=== PATIENT | male | born 1950 | race Two or more races ===

== ENCOUNTER 2022-12-18 17:10 | Inpatient (IN) | payer MEDICARE, OTHER ==
[~2022-12-18] VITALS: Ht 193 cm; Wt 108.9 kg
--- NOTE | 2022-12-18 17:30 | NUR ---
PT CONTRACTED WITH MULTIPLE DECUBITES ON LT KNEE AND LT HIP AND LOWER EXTRAMITY
--- NOTE | 2022-12-18 17:30 | NUR ---
RECEIVED PT 72 YEAS MALE CAME BY [facility] FROM SNF C/O SOB AND LOW O2 SAT
--- NOTE | 2022-12-18 18:00 | NUR ---
INSERTED ANGO CATHETER G 18 ON RT FOR ARM BLOOD DROW AND SENT TO LAB AND BLOOD CULTURE X 2 SENT ANS LACTIC ACID SENT TO LAB
--- NOTE | 2022-12-18 18:47 | NUR ---
TANISHA MORENO SENT TO LAB
[2022-12-18] MEDS ORDERED: SIMV-49 PO (18:59)
[2022-12-18] MEDS ORDERED: HYDR-4303 PO (18:59)
[2022-12-18] MEDS ORDERED: POVI3780 TP (18:59)
[2022-12-18] MEDS ORDERED: TAMS-12 PO (18:59)
[2022-12-18] MEDS ORDERED: ASCO-352 PO (18:59)
[2022-12-18] MEDS ORDERED: MAGN400O6 PO (18:59)
[2022-12-18] MEDS ORDERED: DILT120C87 PO (18:59)
[2022-12-18] MEDS ORDERED: MULT-447 PO (18:59)
[2022-12-18] MEDS ORDERED: ACET-868 PO (18:59)
[2022-12-18] MEDS ORDERED: FERR325T23 PO (18:59)
[2022-12-18] MEDS ORDERED: METO25TA3 PO (18:59)
[2022-12-18] MEDS ORDERED: APIX5TAB PO (18:59)
[2022-12-18] MEDS ORDERED: COLL30OI TP (18:59)
[2022-12-18] MEDS ORDERED: ACID1TAB12 PO (18:59)
[2022-12-18] MEDS ORDERED: TRAM50TA2 PO (18:59)
[2022-12-18] MEDS ORDERED: HYDR-4209 PO (18:59)
[2022-12-18] MEDS ORDERED: GABA-532 PO (18:59)
[2022-12-18] MEDS ORDERED: ARGI1POW13 PO (18:59)
[2022-12-18] MEDS ORDERED: DOCU-141 PO (18:59)
[2022-12-18 19:30] LABS: CARBON DIOXIDE 31 mmol/L (21-32); CHLORIDE 107 mmol/L (98-107); CREATININE 0.7 mg/dL (0.6-1.3); GLUCOSE 105 mg/dL (74-106); SODIUM SERUM 143 mmol/L (136-145); UREA NITROGEN, BLOOD 14 mg/dL (7-18)
--- NOTE | 2022-12-18 19:43 | NUR ---
HAND OFF NIRAJ CLEMONS
[2022-12-18 19:44] LABS: ALANINE AMINOTRANSFERASE 31 U/L (12-78); ALBUMIN 2.2 g/dL (3.4-5.0); ALKALINE PHOSPHATASE 117 U/L (46-116); ASPARTATE AMINOTRANSFERASE 18 U/L (15-37); BILIRUBIN,DIRECT 0.2 mg/dL (0.0-0.2); BILIRUBIN,TOTAL 0.5 mg/dL (0.2-1.0); TOTAL PROTEIN, SERUM 5.7 g/dL (6.4-8.2)
[2022-12-18 20:32] LABS: BASOPHILS % (AUTO) 0.3 % (0.0-2.0); EOSINOPHILS % (AUTO) 1.3 % (0.0-6.0); HEMATOCRIT 35 % (39-51); HEMOGLOBIN 10.9 g/dL (13.5-17.5); LYMPHOCYTES # (AUTO) 1.1 K/uL (0.8-4.8); LYMPHOCYTES % (AUTO) 18.8 % (20.0-44.0); MEAN CORPUSCULAR HGB CONC 31 g/dl (31.0-36.0); MEAN CORPUSCULAR VOLUME 76 fL (80-96); MONOCYTES # (AUTO) 0.5 K/uL (0.1-1.30); MONOCYTES % (AUTO) 8.5 % (2.0-12.0); NEUTROPHILS # (AUTO) 4.3 K/uL (1.8-8.9); NEUTROPHILS % (AUTO) 71.1 % (43.0-81.0); PLATELET COUNT (AUTO) 288 K/uL (150-450); RED BLOOD CELL COUNT(AUTO) 4.63 MIL/uL (4.5-6.0)
--- NOTE | 2022-12-18 20:44 | NUR ---
PT ACCEPTED TO 323-2 PER RN AUTOMATION CONTROL TECHNICIAN
[2022-12-18] MEDS ORDERED: SIMVASTATIN 40 MG TABLET PO SCH (22:00)
[2022-12-18] MEDS ORDERED: ACETAMINOPHEN 325 MG TABLET PO PRN (22:00)
[2022-12-18] MEDS ORDERED: MAGNESIUM HYDROXIDE 30 ML UDC PO PRN (22:00)
[2022-12-18] MEDS ORDERED: ONDANSETRON HCL/PF 4 MG/2 ML VIAL IVP PRN (22:00)
[2022-12-18] MEDS ORDERED: Z GUARD REMEDY 4 OZ OINT TP PRN (22:00)
--- NOTE | 2022-12-18 22:10 | NUR ---
REPORT GIVEN TO DONAL CLEMONS FOR CONTINUATION OF CARE. .
[2022-12-18 22:15] VITALS: BP 110/70
--- NOTE | 2022-12-18 22:19 | NUR ---
PT TRANSFERRED TO VIA [facility].
--- NOTE | 2022-12-18 23:00 | NUR ---
BILLING REPRESENTATIVEHEALTH INSURANCE AGENT NOTES: RECEIVED PATIENT AWAKE IN BED, TRANSFER VIA GURNEY FROM ER, PATIENT WAS PLACED COMFORTABLY IN BED, BED IN LOW POSITION, CALL LIGHTS WITHIN REACH, NO COMPLAIN OF PAIN AND DISCOMFORT AT THIS TIME, ON O2 INHALATION AT 2LPM SATURATING AT 98-99%, PATIENT ON TELE MONITOR- SR-[id number] NO SYMPTOMS WAS OBSERVED, SKIN ASSESSMENT PARTIALLY DONE SOME PICTURES TAKEN PATIENT REFUSED TO BE TURNED AND REMOVAL OF BANDAGE ON LEFT FOOT, INVENTORY DONE AND SIGNED, PATIENT WAS ORIENTED TO ROOM REMIND TO USE THE CALL LIGHTS WHEN NEEDED ASSISTANCE, PATIENT KEPT CLEAN AND DRY ALL NEEDS MET WILL CONTINUE TO MONITOR
[2022-12-18] MEDS ORDERED: FUROSEMIDE 20 MG/2 ML VIAL IV ONE (23:30)
[2022-12-18] MEDS ORDERED: SIMVASTATIN 20 MG TABLET ONE (23:55)
[2022-12-19] VITALS (7 sets, daily range): BP systolic 99–124; BP diastolic 59–89
[2022-12-19] MEDS: HYDROCODONE/APAP 5/325MG TABLET PO PRN ×4 (00:15→16:08)
--- NOTE | 2022-12-19 05:31 | NUR ---
RN NOTES: ATTEMPT TO CHANGE DRESSING AND POSSIBLE ASSESSMENT OF SKIN AT THE BACK PART AND SACRAL WHILE CHANGING THE BD SHEET AND DIAPER, PATIENT WAS SCREAMING AND BECOMING COMBATIVE, SKIN ASSESSMENT WAS NOT DONE AND DOCUMENTED, PATIENT WAS PREMEDICATED WITH PAIN MEDICINE NORCO 5-325 PRIOR TO CHANGING, WILL CONTINUE TO MONITOR
[2022-12-19 06:01] LABS: CALCIUM, SERUM 8.3 mg/dL (8.5-10.1); CREATININE 0.8 mg/dL (0.6-1.3); MAGNESIUM 1.9 mg/dL (1.8-2.4); PHOSPHORUS 3.6 mg/dL (2.5-4.9); POTASSIUM 3.5 mmol/L (3.5-5.1)
[2022-12-19 06:04] LABS: BASOPHILS % (AUTO) 0.3 % (0.0-2.0); EOSINOPHILS % (AUTO) 1.1 % (0.0-6.0); HEMATOCRIT 39 % (39-51); HEMOGLOBIN 11.6 g/dL (13.5-17.5); LYMPHOCYTES % (AUTO) 19.4 % (20.0-44.0); MEAN CORPUSCULAR HGB CONC 30 g/dl (31.0-36.0); MEAN CORPUSCULAR VOLUME 75 fL (80-96); MONOCYTES # (AUTO) 0.4 K/uL (0.1-1.30); MONOCYTES % (AUTO) 7.9 % (2.0-12.0); NEUTROPHILS # (AUTO) 3.6 K/uL (1.8-8.9); NEUTROPHILS % (AUTO) 71.3 % (43.0-81.0); PLATELET COUNT (AUTO) 304 K/uL (150-450); RED BLOOD CELL COUNT(AUTO) 5.12 MIL/uL (4.5-6.0); WHITE BLOOD COUNT (AUTO) 5.1 K/uL (4.3-11.0)
[2022-12-19 06:17] LABS: THYROID STIMULATING HORMONE 2.62 uIU/mL (0.358-3.74)
--- NOTE | 2022-12-19 06:28 | NUR ---
RESIDENTIAL GREEN BUILDING DESIGNER CLOSING NOTES: PATIENT AWAKE IN BED, BED IN LOW POSITION CALL LIGHTS WITHIN REACH, NO COMPLAIN OF PAIN AND DISCOMFORT AT THIS TIME, ON O2 INHALATION AT 2LPM SATURATING WELL, ON TELE MONITOR- AFIB-94, NO SYMPTOMS WAS OBSERVED, PATIENT IS ON BED REST WITH MULTIPLE SKIN ISSUES, REFUSE TO BE CHANGE, AND DOCUMENTED. PATIENT KEPT CLEAN AND DRY ALL NEEDS MET ENDORSE TO INCOMING SHIFT.
--- NOTE | 2022-12-19 07:20 | NUR ---
BALL TRUING MACHINE OPERATOR OPENING NOTES: RECEIVED PATIENT AWAKE IN BED WITH HOB ELEVATED, PT IS AOX3-4, HARD OF HEARING, ABLE TO MAKE NEEDS KNOWN, FOLLOWS SIMPLE COMMANDS, ON ROOM AIR WITH NO DIFFICULTY BREATHING. OV ACCESS ON RFA G#18 SALINE LOCKED, PATENT AND FLUSHING WELL. ON TELEMONITORING WITH CURRENT READING OF AFIB WITH HR OF 110-120S, MD IS AWARE. PATIENT REPORTS PAIN IS CONTROLLED BUT FEELS IT WHEN MOVED, WILL CHECK AGAIN ONCE PAIN MEDICATION. PATIENT VERBALIZED REFUSAL TO CHANGE POSITION DESPITE ENCOURAGEMENT AND EDUCATION. TALKED ABOUT DIAPER CHANGE WELL, AND THE IMPORTANCE OF KEEPING DRY. WILL PLACE CONDOM CATHETER PATIENT IS REFUSING STERLING. SAFETY MEASURES IN PLACE: BED IN LOWEST AND LOCKED POSITION, SIDE RAILS UP X2, BED ALARM ON, TRAY TABLE AND CALL LIGHT WITHIN EASY REACH. WILL CONTINUE TO MONITOR.
[2022-12-19] MEDS: PANTOPRAZOLE 40 MG TABLET.DR PO SCH (07:44)
[2022-12-19] MEDS: ACIDOPHILUS/BULGARICUS 1 EACH TAB.CHEW PO SCH (08:17)
[2022-12-19] MEDS: ASCORBIC ACID 500 MG TABLET PO SCH (08:17)
[2022-12-19] MEDS: DOCUSATE SODIUM 100 MG CAPSULE PO SCH (08:19)
[2022-12-19] MEDS: METOPROLOL SUCCINATE 25 MG TAB.SR.24H PO SCH (08:19)
[2022-12-19] MEDS: DILTIAZEM HCL CD 120 MG PO SCH (08:19)
[2022-12-19] MEDS: MULTIVIT W/MINERALS 1 TAB TABLET PO SCH (08:19)
[2022-12-19] MEDS: TAMSULOSIN 0.4 MG CAP.SR.24H PO SCH (08:20)
[2022-12-19] MEDS: GABAPENTIN 100 MG CAPSULE PO SCH ×4 (08:20→21:57)
[2022-12-19] MEDS: FERROUS SULFATE (325 MG) 325 MG/TAB TABLET PO SCH ×2 (08:21→16:09)
[2022-12-19] MEDS: APIXABAN 5 MG TABLET PO SCH ×2 (08:23→16:08)
[2022-12-19] MEDS: ARGININE/GLUTAMINE/CALCIUM BMB 1 EACH POWD.PACK PO SCH ×2 (08:24→17:00)
[2022-12-19] MEDS ORDERED: FUROSEMIDE 40 MG/4 ML VIAL IV SCH (09:00)
[2022-12-19] MEDS ORDERED: COLLAGENASE 30 GM TUBE TP SCH (09:00)
--- NOTE | 2022-12-19 10:50 | NUR ---
RN NOTES - PATIENT COMPLAINING OF 7/10 LEFT HIP PAIN, GIVEN NORCO 5/325 MG, WILL CONTINUE TO MONITOR.
[2022-12-19] MEDS ORDERED: NA PHOS,M-B/NA PHOS,DI-BA 1 EA ENEMA RC PRN (11:30)
--- NOTE | 2022-12-19 16:15 | NUR ---
RN NOTES - PATIENT COMPLAINING OF 7/10 LEFT HIP PAIN AGAIN, GIVEN NORCO 5/325 MG, WILL CONTINUE TO MONITOR.
[2022-12-19] MEDS ORDERED: KETOROLAC TROMETHAMINE INJ 30 MG/ML VIAL IV PRN (16:30)
--- NOTE | 2022-12-19 18:05 | NUR ---
RN NOTES - CALLED KITCHEN TO REMIND CHERRY AT 1600 BUT NO CHERRY UP UNTIL THIS TIME STOCKED, WILL ENDORSE TO COPIER OPERATOR NURSE.
--- NOTE | 2022-12-19 18:15 | NUR ---
"RN NOTES - PAIN MEDICATION | CONDOM CATH | PM CARE PATIENT IS ANXIOUS ABOUT POSSIBLE PAIN DURING PERICARE AND BED CHANGE, GIVEN KETOROLAC 30 MG VIA IV ORDERED, CHANGED CONDOM CATH AND CHANGED REPLACED BEDSHEETS, PATIENT WAS ABLE TO TOLERATE TURNING AND REPOSITIONING"
--- NOTE | 2022-12-19 19:25 | NUR ---
NURSING ADMINISTRATOR CLOSING NOTES PATIENT AWAKE IN BED WITH HOB ELEVATED, PT IS AOX3-4, HARD OF HEARING, ON 2LPM VIA NC WITHOUT DIFFICULTY. OV ACCESS ON RFA G#18 SALINE LOCKED, PATENT AND FLUSHING WELL. ON TELEMONITORING WITH CURRENT READING OF CONTROLLED AFIB WITH HR OF 80S, PAIN IS CONTROLLED AT THE MOMENT, SAME IV ACCESS, PATENT, FLUSHING WELL. ON CONDOM CATHETER DRAINING PALE YELLOW URINE OF ABOUT 200 CC. ALL DUE MEDS GIVEN, KEPT SAFE AND COMFORTABLE. SAFETY MEASURES MAINTAINED: BED IN LOWEST AND LOCKED POSITION, SIDE RAILS UP X2, BED ALARM ON, TRAY TABLE AND CALL LIGHT WITHIN EASY REACH. ENDORSED TO CORPORATE DIRECTOR OF PHARMACY NURSE.
--- NOTE | 2022-12-19 19:30 | NUR ---
TABLE WORKER PACKAGER OPENING NOTES RECEIVED PT AWAKE IN BED WITH HOB ELEVATED. AOX3-4, [place], ABLE TO MAKE NEEDS KNOWN. ON 2LPM VIA NC WITH NO S/S OF SOB OR DISTRESS. IV ACCESS RFA #18G SL, PATENT AND FLUSHING WELL. ON TELE MONITORING WITH CURRENT READING OF CONTROLLED AFIB WITH HR OF 110. ON CONDOM CATHETER INTACT, PALE YELLOW URINE NOTED IN BAG. SAFETY MEASURES IN PLACE: BED IN LOWEST AND LOCKED POSITION, SIDE RAILS UP X3, BED ALARM ON, TRAY TABLE AND CALL LIGHT WITHIN EASY REACH. WILL CONTINUE TO MONITOR AND ASSIST.
[2022-12-19] MEDS: SIMVASTATIN 20 MG TABLET PO SCH (21:57)
--- NOTE | 2022-12-19 21:58 | NUR ---
RN NOTE PT ENCOURAGED TO TAKE CHERRY PACKET BUT REFUSES. PT STATES "I WANT TO LOOK UP THE INGREDIENTS FIRST". EXPLAINED RISK/BENEFITS, VERBALIZED UNDERSTANDING.
[2022-12-20] VITALS: BP 120/66
--- NOTE | 2022-12-20 03:41 | NUR ---
RN NOTE PT REFUSED BED BATH AND LINEN CHANGE AT THIS TIME.
[2022-12-20 04:00] VITALS: BP 125/72
[2022-12-20 06:29] LABS: BASOPHILS % (AUTO) 0.4 % (0.0-2.0); EOSINOPHILS % (AUTO) 2.1 % (0.0-6.0); HEMATOCRIT 32 % (39-51); LYMPHOCYTES # (AUTO) 0.9 K/uL (0.8-4.8); MEAN CORPUSCULAR HGB CONC 31 g/dl (31.0-36.0); MEAN CORPUSCULAR VOLUME 75 fL (80-96); MONOCYTES # (AUTO) 0.5 K/uL (0.1-1.30); MONOCYTES % (AUTO) 11.7 % (2.0-12.0); NEUTROPHILS # (AUTO) 3.1 K/uL (1.8-8.9); NEUTROPHILS % (AUTO) 66.8 % (43.0-81.0); PLATELET COUNT (AUTO) 267 K/uL (150-450); RED BLOOD CELL COUNT(AUTO) 4.29 MIL/uL (4.5-6.0); WHITE BLOOD COUNT (AUTO) 4.7 K/uL (4.3-11.0)
--- NOTE | 2022-12-20 06:46 | NUR ---
SHRIMP CLEANER CLOSING NOTES PT SLEEPING IN BED, HOB SEMI-FOWLERS. AOX3-4, YOMBA SHOSHONE, ABLE TO MAKE NEEDS KNOWN. STABLE ON 2LPM VIA NC WITH NO S/S OF SOB OR DISTRESS. IV ACCESS RFA #18G SL, PATENT AND FLUSHING WELL. ON TELE MONITORING WITH CURRENT READING OF CONTROLLED AFIB, 82 HR. ON CONDOM CATHETER INTACT, DRAINING CLEAR YELLOW URINE, TOTAL OF 400 ML OUTPUT. ALL CARE PROVIDED AND MEDS TOLERATED WELL. REFUSED TO BE CLEANED, REPOSITIONED, OR CHANGE SHEETS. SAFETY MEASURES MAINTAINED: BED IN LOWEST AND LOCKED POSITION, SIDE RAILS UP X3, BED ALARM ON, TRAY TABLE AND CALL LIGHT WITHIN EASY REACH. WILL ENDORSE MICHELLE TO DAY SHIFT NURSE.
[2022-12-20 06:53] LABS: CREATININE 0.8 mg/dL (0.6-1.3); MAGNESIUM 1.8 mg/dL (1.8-2.4); PHOSPHORUS 3.8 mg/dL (2.5-4.9); POTASSIUM 3.8 mmol/L (3.5-5.1)
[2022-12-20 07:00] VITALS: BP 121/85
--- NOTE | 2022-12-20 07:15 | NUR ---
HEAD OF HISTORY CLOSING NOTES PT SLEEPING IN BED, BUT AROUSABLE AND ABLE TO MAKE NEEDS KNOWN. [place], EITHER YOU SHOUT OR WRITE YOUR CONCERNS ON PAPER. STABLE ON 2LPM VIA NC WITH NO S/S OF SOB OR DISTRESS. IV ACCESS RFA #18G SL, FLUSHING HOWEVER WITH VISIBLE BLOOD INSIDE AND OUT OF THE TRANSPARENT TAPE. INFORMED CLIENT THAT DRESSING IS NEEDED TO BE CHANGED AND ESTABLISH NEW IV LINE IF WARRANTED. ON TELE MONITORING WITH CURRENT READING OF CONTROLLED AFIB, 84 HR. ON CONDOM CATHETER INTACT, DRAINING CLEAR YELLOW URINE. SAFETY MEASURES MAINTAINED: BED IN LOWEST AND LOCKED POSITION, SIDE RAILS UP X3, BED ALARM ON, TRAY TABLE AND CALL LIGHT WITHIN EASY REACH. WILL CONTINUE TO MONITOR THE PATIENT Addendum: 12/20/22 at 1142 by TEREZA MONTIEL JR, RN OPENING NOTES
[2022-12-20] MEDS: MULTIVIT W/MINERALS 1 TAB TABLET PO SCH (08:26)
[2022-12-20] MEDS: PANTOPRAZOLE 40 MG TABLET.DR PO SCH (08:26)
[2022-12-20] MEDS: ACIDOPHILUS/BULGARICUS 1 EACH TAB.CHEW PO SCH (08:26)
[2022-12-20] MEDS: FERROUS SULFATE (325 MG) 325 MG/TAB TABLET PO SCH ×2 (08:27→16:04)
[2022-12-20] MEDS: GABAPENTIN 100 MG CAPSULE PO SCH ×4 (08:27→21:26)
[2022-12-20] MEDS: FUROSEMIDE 40 MG TABLET PO SCH (08:27)
[2022-12-20] MEDS: DOCUSATE SODIUM 100 MG CAPSULE PO SCH (08:27)
[2022-12-20] MEDS: TAMSULOSIN 0.4 MG CAP.SR.24H PO SCH (08:27)
[2022-12-20] MEDS: ASCORBIC ACID 500 MG TABLET PO SCH (08:28)
[2022-12-20] MEDS: CADEXOMER IODINE 40 GM TUBE TP SCH (08:28)
[2022-12-20] MEDS: DILTIAZEM HCL CD 120 MG PO SCH (08:29)
[2022-12-20] MEDS: METOPROLOL SUCCINATE 25 MG TAB.SR.24H PO SCH (08:29)
[2022-12-20] MEDS: APIXABAN 5 MG TABLET PO SCH ×2 (08:30→16:06)
[2022-12-20] MEDS: ARGININE/GLUTAMINE/CALCIUM BMB 1 EACH POWD.PACK PO SCH ×2 (08:52→16:04)
--- NOTE | 2022-12-20 10:19 | NUR ---
WOUND CARE CONSULT: PT REFUSED TO TURN FOR SKIN ASSESSMENT. ADMISSION PHOTOS INDICATE MULTIPLE PRESSURE ULCERS PRESENT ON ADMISSION INCLUDING LEFT HIP, SACRUM, LEFT FLANK, LEFT UPPER BACK AND SHOULDER DEEP TISSUE INJURIES AND FOOT WOUNDS, ALL PRESENT ON ADMISSION. DR RODRIGUEZ AND DR DAS CALLED FOR SURGICAL AND DPM CONSULTS. DISCUSSED SKIN PROTECTION WITH NURSING STAFF. [facility]. IN AGREEMENT WITH PLAN OF CARE.
[2022-12-20] MEDS: MELOXICAM 7.5 MG TABLET PO SCH (14:07)
--- NOTE | 2022-12-20 17:45 | NUR ---
Patient didn't sign yet the wound debridement form, verbalizes "It's still premature to sign", according to the patient
[2022-12-20 18:11] LABS: ABG BASE EXCESS 3.4 mmol/L; ABG OXYGEN SATURATION 97.8 % (92.0-98.5); ABG PH 7.456 (7.350-7.450); ABG PO2 106.5 mmHg (75.0-100.0); AaDO2 45.9 mmHg; COHb 1.1 % (0.5-1.5); MetHb 0.2 % (0.0-1.5); O2Hb 96.5 % (94.0-97.0); SITE, ABG Right Radial; VENT MODE, BG 2 LPM NC
[2022-12-20] MEDS: THERAHONEY GEL 1.5 OZ TUBE TP SCH (19:01)
--- NOTE | 2022-12-20 19:35 | NUR ---
SAP PLANT MAINTENANCE CONSULTANT CLOSING NOTES PATIENT AWAKE IN BED WITH HOB ELEVATED, PT IS AOX3, HARD OF HEARING, ON 2LPM VIA NC WITHOUT DIFFICULTY. OV ACCESS ON RFA G#18 SALINE LOCKED, PATENT AND FLUSHING WELL. ON TELEMONITORING WITH CURRENT READING OF CONTROLLED AFIB WITH HR OF 82, PAIN IS CONTROLLED AT THE MOMENT. ON CONDOM CATHETER DRAINING PALE YELLOW URINE OF 800 CC. ALL DUE MEDS GIVEN, KEPT SAFE AND COMFORTABLE. SAFETY MEASURES MAINTAINED: BED IN LOWEST AND LOCKED POSITION, SIDE RAILS UP X2, BED ALARM ON, TRAY TABLE AND CALL LIGHT WITHIN EASY REACH. WILL BE ENDORSED TO ROUTE SALESMAN AND DRIVER NURSE FOR MICHELLE.
--- NOTE | 2022-12-20 19:43 | NUR ---
ASSISTANT PRODUCT MANAGER OPENING NOTES RECEIVED PATIENT IN BED, ON RIGHT LYING POSITION AND MODERATE HIGH BACK REST POSITION. NO S/S OF PAIN OR ANY DISCOMFORT AT THIS TIME. NOTED MULTIPLE PRESSURE ULCERS PATIENT REFUSED TO DO SKIN ASSESSMENT AT THIS TIME. WITH IV ACCESS AT RFA #18 SL PATENT AND INTACT.PATIENT S INCONTINENT USES DIAPER AND ON CONDOM CATHETER CONNECTED TO URINE BAG NOTED URINE OUTPUT. ON TELE MONITORING DEVICE WITH A-FIB READING. PATIENT IS FOR WOUND DEBRIDEMENT BUT PATIENT DID NOT SIGNED A CONSENT. KEPT BED ON LOWE LOCKED POSITION. KEPT SIDE RAILS UP X 2 ALL THE TIME. KEPT CALL LIGHT LIGHT WITHIN AT REACH. WILL CONTINUE TO MONITOR.
[2022-12-20] MEDS: SIMVASTATIN 20 MG TABLET PO SCH (21:28)
[2022-12-21] VITALS: BP 107/75
[2022-12-21] MEDS: HYDROCODONE/APAP 5/325MG TABLET PO PRN (05:11)
--- NOTE | 2022-12-21 06:24 | NUR ---
HOTEL SERVER CLOSING NOTES PATIENT IS IN BED, ASLEEP. A/O X 2 WITH EPISODES OF CONFUSIONS ON MODERATE HIGH BACK REST POSITION. HOOKED TO NASAL CANNULA AT 2LPM SATURATING WELL. ATTACHED TO TELE MONITORING DEVICE WITH EPISODES OF A-FIB. PATIENT IS INCONTINENT AND USES DIAPER. WITH CONDOM CATHETER IN PLACED CONNECTED TO URINE BAG NOTED URINE OUTPUT. WITH IV ACCESS AT RFA #18G SL PATENT AND INTACT.PM CARE RENDERED WOUND CARE DONE. PATIENT ABLE TO MOVE SLOWLY WHEN TURNING. ALL DUE MEDICATIONS GIVEN ALL NEEDS ATTENDED. TURNED PATIENT EVERY 2 HOURS. KEPT BAD ON LOWER LOCKED POSITION KEPT SIDE RAILS UP X 3 ALL THE TIME. KEPT CALL LIGHT WITHIN AT REACH. WILL ENDORSED TO AM SHIFT FOR MICHELLE.
[2022-12-21 06:37] LABS: BASOPHILS % (AUTO) 0.3 % (0.0-2.0); EOSINOPHILS % (AUTO) 1.4 % (0.0-6.0); HEMATOCRIT 33 % (39-51); HEMOGLOBIN 10.3 g/dL (13.5-17.5); LYMPHOCYTES # (AUTO) 0.9 K/uL (0.8-4.8); LYMPHOCYTES % (AUTO) 14.8 % (20.0-44.0); MEAN CORPUSCULAR HGB CONC 31 g/dl (31.0-36.0); MEAN CORPUSCULAR VOLUME 76 fL (80-96); MONOCYTES # (AUTO) 0.5 K/uL (0.1-1.30); MONOCYTES % (AUTO) 7.6 % (2.0-12.0); NEUTROPHILS # (AUTO) 4.6 K/uL (1.8-8.9); NEUTROPHILS % (AUTO) 75.9 % (43.0-81.0); PLATELET COUNT (AUTO) 294 K/uL (150-450); RED BLOOD CELL COUNT(AUTO) 4.37 MIL/uL (4.5-6.0); WHITE BLOOD COUNT (AUTO) 6.1 K/uL (4.3-11.0)
--- NOTE | 2022-12-21 07:30 | NUR ---
STRIPPER PRELIMINARY NOTES PT IN BED, AWAKE, ALERT AND ORIENTED, NO COMPLAINT OF PAIN AT THIS TIME, RESPIRATIONS NORMAL, CALL LIGHT WITHIN REACH, NO SHORTNESS OF BREATH, KEPT COMFORTABLE IN BED.
[2022-12-21 08:00] VITALS: BP 100/69
[2022-12-21] MEDS: PANTOPRAZOLE 40 MG TABLET.DR PO SCH (08:41)
[2022-12-21] MEDS: FERROUS SULFATE (325 MG) 325 MG/TAB TABLET PO SCH ×2 (08:41→16:47)
[2022-12-21] MEDS: DOCUSATE SODIUM 100 MG CAPSULE PO SCH (08:41)
[2022-12-21] MEDS: ASCORBIC ACID 500 MG TABLET PO SCH (08:41)
[2022-12-21] MEDS: MULTIVIT W/MINERALS 1 TAB TABLET PO SCH (08:42)
[2022-12-21] MEDS: DILTIAZEM HCL CD 120 MG PO SCH (08:42)
[2022-12-21] MEDS: TAMSULOSIN 0.4 MG CAP.SR.24H PO SCH (08:42)
[2022-12-21] MEDS: MELOXICAM 7.5 MG TABLET PO SCH (08:42)
[2022-12-21] MEDS: GABAPENTIN 100 MG CAPSULE PO SCH ×4 (08:42→21:07)
[2022-12-21] MEDS: METOPROLOL SUCCINATE 25 MG TAB.SR.24H PO SCH (08:42)
[2022-12-21] MEDS: ACIDOPHILUS/BULGARICUS 1 EACH TAB.CHEW PO SCH (08:42)
[2022-12-21] MEDS: APIXABAN 5 MG TABLET PO SCH ×2 (08:43→16:48)
[2022-12-21] MEDS: FUROSEMIDE 40 MG TABLET PO SCH (08:43)
[2022-12-21] MEDS: ARGININE/GLUTAMINE/CALCIUM BMB 1 EACH POWD.PACK PO SCH ×2 (08:44→16:47)
[2022-12-21 08:46] LABS: CALCIUM, SERUM 7.8 mg/dL (8.5-10.1); CREATININE 0.8 mg/dL (0.6-1.3); PHOSPHORUS 2.9 mg/dL (2.5-4.9); POTASSIUM 3.6 mmol/L (3.5-5.1)
[2022-12-21 09:06] LABS: MAGNESIUM 1.8 mg/dL (1.8-2.4)
[2022-12-21] MEDS: CADEXOMER IODINE 40 GM TUBE TP SCH (09:30)
[2022-12-21] MEDS: THERAHONEY GEL 1.5 OZ TUBE TP SCH (09:30)
--- NOTE | 2022-12-21 11:20 | NUR ---
SCALLOP CUTTER MACHINE NOTES PT SEEN AND EXAMINED BY DR. LUTHER, PLAN OF CARE DISCUSSED WITH PT.
[2022-12-21 12:00] VITALS: BP 103/76
[2022-12-21 16:00] VITALS: BP 94/67
--- NOTE | 2022-12-21 18:25 | NUR ---
ARMY OFFICER NOTES PT REPOSITIONED BUT DOES NOT LIKE IT, PREFERS TO BE ON HIS RIGHT SIDE, EXPLAINED RISKS AND BENEFITS OF REPOSITIONING, STILL REFUSED.
--- NOTE | 2022-12-21 18:25 | NUR ---
DIALYSIS BIOMED TECHNICIAN NOTES PT IN BED, AWAKE, ALERT AND ORIENTED, DENIES PAIN, NOT IN DISTRESS, PM MEDS GIVEN ORDERED, PM CARE PROVIDED, WOUND DRESSING DRY AND INTACT, PT REFUSED WOUND TREATMENT AND DRESSING CHANGE, PT SEEN BY DR. AYALA, REFUSED WOUND EXAM AND DEBRIDEMENT, CONDOM CATH IN PLACE, DRAINING WELL WITH CLEAR, YELLOW URINE, REPOSITIONED FOR COMFORT.
--- NOTE | 2022-12-21 19:50 | NUR ---
TUNGSTEN TENDER OPENING NOTES RECEIVED PATIENT IN BED, ON RIGHT LYING POSITION AND MODERATE HIGH BACK REST POSITION. NO S/S OF PAIN OR ANY DISCOMFORT AT THIS TIME. NOTED MULTIPLE PRESSURE ULCERS. IV ACCESS AT RFA #18 SL PATENT AND INTACT.PATIENT IS INCONTINENT USES DIAPER AND ON CONDOM CATHETER CONNECTED TO URINE BAG NOTED URINE OUTPUT. ON TELE MONITORING DEVICE WITH A-FIB READING. WILL MAINTAIN SAFETY MEASURES WITH BED ON LOW LOCKED POSITION. SIDE RAILS UP X 2. CALL LIGHT AND TABLE WITHIN AT REACH. WILL CONTINUE TO MONITOR AND REASSESS FOR ANY CHANGES. WILL CARRY OUT ANY ONGOING AND ACTIVE MD ORDERS.
[2022-12-21 20:00] VITALS: BP 83/55
[2022-12-21] MEDS: SIMVASTATIN 20 MG TABLET PO SCH (21:07)
--- NOTE | 2022-12-21 21:10 | NUR ---
RN NOTES- REFUSED REPOSITION DUE MEDS GIVEN TO THE PATIENT. REFUSED REPOSITION. WILL MONITOR THE PATIENT AND TRY TO REPOSTION THE PATIENT AFTER 30 MINS.
[2022-12-22] VITALS: BP 110/82
[2022-12-22 04:00] VITALS: BP 105/76
--- NOTE | 2022-12-22 05:10 | NUR ---
RN NOTES- WOUND CARE AND DRESSING CHANGE DONE PATIENT WAS ABLE TO TOLERATE WOUND CARE AND DRESSING CHANGE THIS TIME. LINEN CHANGED AND CONDOM CATHETER CHANGED WITH THE HELP OF MAYCOL. WILL CONTINUE TO MONITOR THE PATIENT.
[2022-12-22 06:08] LABS: BASOPHILS % (AUTO) 0.9 % (0.0-2.0); EOSINOPHILS % (AUTO) 2.3 % (0.0-6.0); HEMATOCRIT 31 % (39-51); HEMOGLOBIN 9.8 g/dL (13.5-17.5); LYMPHOCYTES # (AUTO) 0.9 K/uL (0.8-4.8); LYMPHOCYTES % (AUTO) 16.8 % (20.0-44.0); MEAN CORPUSCULAR HGB CONC 31 g/dl (31.0-36.0); MEAN CORPUSCULAR VOLUME 75 fL (80-96); MONOCYTES # (AUTO) 0.5 K/uL (0.1-1.30); NEUTROPHILS # (AUTO) 3.7 K/uL (1.8-8.9); PLATELET COUNT (AUTO) 265 K/uL (150-450); RED BLOOD CELL COUNT(AUTO) 4.18 MIL/uL (4.5-6.0); WHITE BLOOD COUNT (AUTO) 5.3 K/uL (4.3-11.0)
[2022-12-22 06:37] LABS: CALCIUM, SERUM 7.8 mg/dL (8.5-10.1); CREATININE 0.8 mg/dL (0.6-1.3); MAGNESIUM 1.9 mg/dL (1.8-2.4); POTASSIUM 3.9 mmol/L (3.5-5.1)
--- NOTE | 2022-12-22 06:54 | NUR ---
TOP CAGER OPENING NOTES PATIENT IN BED, ON RIGHT LYING POSITION AND MODERATE HIGH BACK REST POSITION. PATIENT REFUSED TO BE REPOSITIONED. NO S/S OF PAIN OR ANY DISCOMFORT AT THIS TIME. NOTED MULTIPLE PRESSURE ULCERS. WOUND CARE AND DRESSING CHANGE DONE. IV ACCESS AT RFA #18 SL PATENT AND INTACT. PATIENT IS INCONTINENT USES CONDOM CATHETER CONNECTED TO URINE BAG WITH A URINE OUTPUT OF 700cc. ON TELE MONITORING DEVICE WITH A-FIB @ 118. SAFETY MEASURES MAINTAINED WITH BED ON LOW LOCKED POSITION. SIDE RAILS UP X 2. CALL LIGHT AND TABLE WITHIN AT REACH. WILL ENDORSE TO THE NEXT SHIFT FOR CONTINUITY OF CARE. Addendum: 12/22/22 at 0655 by LUCIO HOGUE RN TOP CAGER CLOSING NOTES
[2022-12-22 07:00] VITALS: BP 135/77
--- NOTE | 2022-12-22 07:29 | NUR ---
ROCKET ENGINE COMPONENT MECHANIC OPENING NOTE RECEIVED PT AWAKE AND RESTING IN BED. PT IS A/O X2-3, ABLE TO MAKE NEEDS KNOWN. PT ON O2 AT 2L/MIN VIA NASAL CANNULA, TOLERATING WELL. NO SOB NOTED. NOT IN ANY SIGN OF RESPIRATORY DISTRESS. PT ON TELE SIZE WORKER WITH CURRENT READING SINUS TACH, HR 125. NO C/O CARDIAC DISTRESS VOICED OUT AT THIS TIME. DR. BAEZ AWARE OF PT'S CURRENT READING. SAFETY MEASURES IN PLACE: BED IN LOWEST AND LOCKED POSITION, KEPT HOB ELEVATED, SIDE RAILS UPX2, AND CALL LIGHT WITHIN REACH. WILL CONTINUE PT WITH PLAN OF CARE.
[2022-12-22] MEDS: PANTOPRAZOLE 40 MG TABLET.DR PO SCH (08:20)
[2022-12-22] MEDS: TAMSULOSIN 0.4 MG CAP.SR.24H PO SCH (08:49)
[2022-12-22] MEDS: FUROSEMIDE 40 MG TABLET PO SCH (08:49)
[2022-12-22] MEDS: DOCUSATE SODIUM 100 MG CAPSULE PO SCH (08:49)
[2022-12-22] MEDS: GABAPENTIN 100 MG CAPSULE PO SCH ×2 (08:49→12:33)
[2022-12-22] MEDS: FERROUS SULFATE (325 MG) 325 MG/TAB TABLET PO SCH (08:49)
[2022-12-22] MEDS: MULTIVIT W/MINERALS 1 TAB TABLET PO SCH (08:50)
[2022-12-22] MEDS: ACIDOPHILUS/BULGARICUS 1 EACH TAB.CHEW PO SCH (08:50)
[2022-12-22] MEDS: MELOXICAM 7.5 MG TABLET PO SCH (08:50)
[2022-12-22] MEDS: METOPROLOL SUCCINATE 25 MG TAB.SR.24H PO SCH (08:51)
[2022-12-22] MEDS: ASCORBIC ACID 500 MG TABLET PO SCH (08:51)
[2022-12-22 08:52] VITALS: BP 122/68
[2022-12-22] MEDS: DILTIAZEM HCL CD 120 MG PO SCH (08:52)
[2022-12-22] MEDS: ARGININE/GLUTAMINE/CALCIUM BMB 1 EACH POWD.PACK PO SCH (08:52)
[2022-12-22] MEDS: APIXABAN 5 MG TABLET PO SCH (08:54)
[2022-12-22] MEDS: CADEXOMER IODINE 40 GM TUBE TP SCH (08:54)
[2022-12-22] MEDS: THERAHONEY GEL 1.5 OZ TUBE TP SCH (08:55)
[2022-12-22] MEDS ORDERED: COLL30OI TP (09:58)
[2022-12-22] MEDS ORDERED: FURO40TA5 PO (09:58)
[2022-12-22] MEDS ORDERED: CADE40GE2 TP (09:58)
[2022-12-22] MEDS ORDERED: SIMV-46 PO (09:58)
[2022-12-22] MEDS ORDERED: PANT40TA49 PO (09:58)
[2022-12-22] MEDS ORDERED: MELO7.5T12 PO (09:58)
--- NOTE | 2022-12-22 15:03 | NUR ---
CODING QUALITY COORDINATOR NOTE PT DISCHARGED BACK TO [facility] FOR CONTINUITY OF CARE. PT IS A/O X2-3, ABLE TO MAKE NEEDS KNOWN. PT IS ON O2 AT 2L/MIN VIA NASAL CANNULA, TOLERATING WELL WITH SPO2 AT 96%. NO SOB NOTED. NOT IN ANY SIGN OF RESPIRATORY DISTRESS. VITAL SIGNS TAKEN, STABLE, AND RECORDED. PT REFUSED BODY ASSESSMENTS AND PHOTOGRAPHS OF SKIN ISSUES. PT'S TELE CASE MAKER REMOVED AND TELE BOX WAS GIVEN TO THE EFFICIENCY EXPERT, NERI. TELE CARDIAC READING PRIOR TO REMOVING THE MONITOR WAS SINUS TACH, HR 110. NO C/O CARDIAC DISTRESS VOICED OUT AT THIS TIME. DR. BAEZ AND DR. CECILLE LUTHER AWARE OF PT'S CURRENT CARDIAC READING. ALL BELONGINGS ACCOUNTED FOR. DISCHARGED INSTRUCTIONS AND HEALTH TEACHINGS EXPLAINED TO THE PT AND PT VERBALIZED UNDERSTANDING. IV ACCESS ON RFA G#18 REMOVED AND NO ACTIVE BLEEDING NOTED. DRY PRESSURE DRESSING APPLIED AT THE SITE. WRISTBAND REMOVED. REPORT GIVEN EARLIER TO DEONTE SHI OF [facility]. PT LEFT THE UNIT AT 1458 ACCOMPANIED BY 2 DENTAL LABORATORY TECHNICIAN VIA GURNEY. AYALA AND CHARGED NURSE AWARE OF DISCHARGED.
== END 2022-12-22 14:58 | DRG 291 ==
LOC: ER 18:10 → TELE 21:04
PROVIDERS: ADMIT Nurse Practitioner Family; ATTEND Registered Nurse
DX: I11.0 Hypertensive heart disease with heart failure (principal); I50.23 Acute on chronic systolic (congestive) heart failure; L89.224 Pressure ulcer of left hip, stage 4; L89.144 Pressure ulcer of left lower back, stage 4; L89.154 Pressure ulcer of sacral region, stage 4; L89.623 Pressure ulcer of left heel, stage 3; L89.893 Pressure ulcer of other site, stage 3; R53.2 Functional quadriplegia; J96.01 Acute respiratory failure with hypoxia; I48.20 Chronic atrial fibrillation, unspecified; E44.0 Moderate protein-calorie malnutrition; J90 Pleural effusion, not elsewhere classified; I48.92 Unspecified atrial flutter; Z20.822 Contact with and (suspected) exposure to COVID-19; Z88.8 Allergy status to other drugs, medicaments and biological substances; E78.5 Hyperlipidemia, unspecified; Z79.01 Long term (current) use of anticoagulants; Z79.899 Other long term (current) drug therapy; Z86.59 Personal history of other mental and behavioral disorders; D50.9 Iron deficiency anemia, unspecified; R60.9 Edema, unspecified; M16.12 Unilateral primary osteoarthritis, left hip; M17.12 Unilateral primary osteoarthritis, left knee; M24.562 Contracture, left knee; M24.561 Contracture, right knee; N40.0 Benign prostatic hyperplasia without lower urinary tract symptoms; E88.09 Other disorders of plasma-protein metabolism, not elsewhere classified; G89.29 Other chronic pain; I07.1 Rheumatic tricuspid insufficiency; L89.610 Pressure ulcer of right heel, unstageable; Z91.199 Patient's noncompliance with other medical treatment and regimen due to unspecified reason; E11.40 Type 2 diabetes mellitus with diabetic neuropathy, unspecified; D64.9 Anemia, unspecified; L89.126 Pressure-induced deep tissue damage of left upper back
CPT/HCPCS: 36415; 36600; 71045-TC; 73560-TC; 80048-TC; 80061-TC; 80076-TC; 82728-TC; 83540-TC; 83605-TC; 83735-TC; 83880; 84100-TC; 84443-TC; 84484-TC; 85025-TC; 85378-TC; 85730-TC; 87081-TC; 93307-TC; A4223; A4349; A6253; C9803; G0378; J1885; J1940; J7030

== ENCOUNTER 2023-06-18 22:38 | Inpatient (IN) | payer MEDICARE, OTHER ==
[~2023-06-18] VITALS: Ht 193 cm; Wt 92.1 kg
[~2023-06-18 22:38] MED LIST: ACET-868 PO; ACID1TAB12 PO; APIX5TAB PO; ARGI1POW13 PO; ASCO-352 PO; CADE40GE2 TP; COLL30OI TP; DILT120C87 PO; DOCU-141 PO; FERR325T23 PO; FURO40TA5 PO; GABA-532 PO; HYDR-4209 PO; MAGN400O6 PO; MELO7.5T12 PO; METO25TA3 PO; MULT-447 PO; PANT40TA49 PO; POVI3780 TP; SIMV-46 PO; SIMV-49 PO; TAMS-12 PO
[2023-06-18 23:30] LABS: BASOPHILS # (AUTO) 0.1 K/uL (0.0-0.2); BASOPHILS % (AUTO) 0.5 % (0.0-2.0); EOSINOPHILS # (AUTO) 0.1 K/uL (0.0-0.7); EOSINOPHILS % (AUTO) 0.5 % (0.0-6.0); HEMATOCRIT 41 % (39-51); HEMOGLOBIN 13.1 g/dL (13.5-17.5); LYMPHOCYTES # (AUTO) 0.4 K/uL (0.8-4.8); LYMPHOCYTES % (AUTO) 3.7 % (20.0-44.0); MEAN CORPUSCULAR HEMOGLOBIN 26 PG (26.0-33.0); MEAN CORPUSCULAR HGB CONC 32 g/dl (31.0-36.0); MEAN CORPUSCULAR VOLUME 81 fL (80-96); MONOCYTES # (AUTO) 0.3 K/uL (0.1-1.30); MONOCYTES % (AUTO) 3.3 % (2.0-12.0); NEUTROPHILS # (AUTO) 9.5 K/uL (1.8-8.9); PLATELET COUNT (AUTO) 189 K/uL (150-450); RED BLOOD CELL COUNT(AUTO) 5.05 MIL/uL (4.5-6.0); WHITE BLOOD COUNT (AUTO) 10.3 K/uL (4.3-11.0)
[2023-06-18 23:32] LABS: CALCIUM, SERUM 8.5 mg/dL (8.5-10.1); CARBON DIOXIDE 30 mmol/L (21-32); CHLORIDE 106 mmol/L (98-107); CREATININE 0.8 mg/dL (0.6-1.3); GLUCOSE 116 mg/dL (74-106); POTASSIUM 3.9 mmol/L (3.5-5.1); SODIUM SERUM 143 mmol/L (136-145); UREA NITROGEN, BLOOD 15 mg/dL (7-18)
[2023-06-18 23:36] LABS: INR 1.19 (0.91-1.10); PARTIAL THROMBOPLASTIN TIME 31.3 SEC (24.3-34.3); PROTHROMBIN TIME 12.4 SECS (9.2-11.1)
[2023-06-18 23:38] LABS: ALANINE AMINOTRANSFERASE 68 U/L (12-78); ALBUMIN 3.3 g/dL (3.4-5.0); ALKALINE PHOSPHATASE 126 U/L (46-116); ASPARTATE AMINOTRANSFERASE 38 U/L (15-37); BILIRUBIN,DIRECT 0.2 mg/dL (0.0-0.2); BILIRUBIN,TOTAL 0.9 mg/dL (0.2-1.0); LIPASE 39 U/L (73-393)
[2023-06-18 23:59] LABS: APPEARANCE,URINE CLOUDY (CLEAR); BILIRUBIN,URINE NEGATIVE (NEGATIVE); BLOOD, URINE 3+ Ery/uL (NEGATIVE); COLOR,URINE RED (YELLOW); KETONES,URINE NEGATIVE (NEGATIVE); LEUKOCYTE ESTERASE ,URINE TRACE (NEGATIVE); NITRITE, URINE POSITIVE (NEGATIVE); PH,URINE 7.5 (5.0-8.0); PROTEIN,URINE 1+ mg/dl (NEGATIVE); UGLUCOSE NEGATIVE (NEGATIVE)
[2023-06-19] VITALS (8 sets, daily range): BP systolic 109–144; BP diastolic 69–79; TEMP 97.7–99.1; O2SAT 93–98
[2023-06-19 00:35] LABS: RBC,URINE TOO NUMEROUS TO COUN /HPF (0-2)
[2023-06-19 00:36] LABS: ADD URINE CULTURE YES; BACTERIA,URINE Few /HPF (None Seen); SQUAMOUS EPITHELIAL CELL,UR None Seen /HPF (None Seen)
[2023-06-19] MEDS ORDERED: CEFTRIAXONE 1GM BAG (ER ONLY) 50 ML IV ONE (00:59)
[2023-06-19] MEDS ORDERED: CEFTRIAXONE 1GM BAG (ER ONLY) 1 GM/50 ML PIGGYBACK IV ONE (01:00)
[2023-06-19] MEDS ORDERED: HYDROCODONE/APAP 5/325MG TABLET PO PRN (06:00)
[2023-06-19] MEDS: TAMSULOSIN 0.4 MG CAP.SR.24H PO SCH ×3 (06:00→17:26)
[2023-06-19] MEDS ORDERED: MAGNESIUM HYDROXIDE 30 ML UDC PO PRN (06:00)
[2023-06-19] MEDS ORDERED: MORPHINE SULFATE INJ 2 MG/ML DISP.SYRIN IV PRN (06:30)
[2023-06-19] MEDS ORDERED: ONDANSETRON HCL/PF 4 MG/2 ML VIAL IVP PRN (06:30)
[2023-06-19] MEDS ORDERED: ACETAMINOPHEN 325 MG TABLET PO PRN (06:30)
[2023-06-19] MEDS ORDERED: PANTOPRAZOLE 40 MG TABLET.DR PO SCH (07:30)
[2023-06-19] MEDS: PANTOPRAZOLE 40 MG TABLET.DR PO SCH (08:24)
[2023-06-19] MEDS: DOCUSATE SODIUM 100 MG CAPSULE PO SCH (08:25)
[2023-06-19] MEDS: ACIDOPHILUS/BULGARICUS 1 EACH TAB.CHEW PO SCH (08:25)
[2023-06-19] MEDS: MULTIVIT W/MINERALS 1 TAB TABLET PO SCH (08:25)
[2023-06-19] MEDS: GABAPENTIN 300 MG CAPSULE PO SCH ×4 (08:25→21:02)
[2023-06-19] MEDS: ASCORBIC ACID 500 MG TABLET PO SCH (08:25)
[2023-06-19] MEDS: FUROSEMIDE 40 MG TABLET PO SCH (08:26)
[2023-06-19] MEDS: MELOXICAM 7.5 MG TABLET PO SCH (08:26)
[2023-06-19] MEDS: DILTIAZEM HCL CD 120 MG PO SCH (08:26)
[2023-06-19] MEDS ORDERED: ZINC220C6 PO (08:38)
[2023-06-19] MEDS ORDERED: PETR113O TP (08:38)
[2023-06-19] MEDS ORDERED: CLON0.252 PO (08:38)
[2023-06-19] MEDS ORDERED: MELO-105 PO (08:38)
[2023-06-19] MEDS ORDERED: BENZ-13 PO (08:38)
[2023-06-19] MEDS ORDERED: CALC1TAB30 PO (08:38)
[2023-06-19] MEDS ORDERED: POLY17PO4 PO (08:38)
[2023-06-19] MEDS ORDERED: ATOR40TA PO (08:38)
[2023-06-19] MEDS ORDERED: ACET-2605 PO (08:38)
[2023-06-19] MEDS ORDERED: HYDR-3980 PO (08:38)
[2023-06-19] MEDS ORDERED: AMIN30LI2 PO (08:38)
[2023-06-19] MEDS ORDERED: BUDE0.5A4 IH (08:38)
[2023-06-19] MEDS ORDERED: ACET-868 PO (08:38)
[2023-06-19] MEDS ORDERED: ZINC57OI4 TP (08:38)
[2023-06-19] MEDS ORDERED: CRAN425C6 PO (08:38)
[2023-06-19] MEDS ORDERED: CRAN3875 PO (08:38)
[2023-06-19] MEDS ORDERED: HYDR28.32 TP (08:38)
[2023-06-19] MEDS ORDERED: COLLAGENASE 30 GM TUBE TP SCH (09:00)
[2023-06-19] MEDS ORDERED: CADEXOMER IODINE 40 GM TUBE TP SCH (09:00)
[2023-06-19] MEDS ORDERED: THERAHONEY GEL 1.5 OZ TUBE TP SCH (09:00)
[2023-06-19] MEDS: ARGININE/GLUTAMINE/CALCIUM BMB 1 EACH POWD.PACK PO SCH ×2 (09:00→17:00)
[2023-06-19 09:11] LABS: BASOPHILS % (AUTO) 0.5 % (0.0-2.0); EOSINOPHILS % (AUTO) 0.1 % (0.0-6.0); HEMATOCRIT 37 % (39-51); HEMOGLOBIN 11.9 g/dL (13.5-17.5); LYMPHOCYTES # (AUTO) 0.4 K/uL (0.8-4.8); MEAN CORPUSCULAR HEMOGLOBIN 27 PG (26.0-33.0); MEAN CORPUSCULAR HGB CONC 32 g/dl (31.0-36.0); MEAN CORPUSCULAR VOLUME 83 fL (80-96); MONOCYTES # (AUTO) 0.3 K/uL (0.1-1.30); MONOCYTES % (AUTO) 3.4 % (2.0-12.0); NEUTROPHILS # (AUTO) 6.8 K/uL (1.8-8.9); PLATELET COUNT (AUTO) 161 K/uL (150-450); RED BLOOD CELL COUNT(AUTO) 4.43 MIL/uL (4.5-6.0); RED CELL DISTRIBUTION WIDTH 18.8 % (11.5-15.0); WHITE BLOOD COUNT (AUTO) 7.4 K/uL (4.3-11.0)
[2023-06-19 09:28] LABS: ALBUMIN 2.7 g/dL (3.4-5.0); BILIRUBIN,TOTAL 1.4 mg/dL (0.2-1.0); CALCIUM, SERUM 8.3 mg/dL (8.5-10.1); CREATININE 0.8 mg/dL (0.6-1.3); MAGNESIUM 1.8 mg/dL (1.8-2.4); PHOSPHORUS 2.9 mg/dL (2.5-4.9); POTASSIUM 3.6 mmol/L (3.5-5.1)
[2023-06-19] MEDS ORDERED: BENZONATATE 100 MG CAPSULE PO PRN (09:30)
[2023-06-19] MEDS ORDERED: clonazePAM 0.5 MG TABLET PO PRN (09:30)
[2023-06-19 09:34] LABS: THYROID STIMULATING HORMONE 0.834 uIU/mL (0.358-3.74)
[2023-06-19] MEDS: BUDESONIDE RESPULE INH 0.5 MG/2 ML AMPUL.NEB IH SCH ×2 (10:12→20:08)
[2023-06-19] MEDS: HYDROGEL DRESSING 90 GM TUBE TP SCH (16:24)
[2023-06-19] MEDS: FERROUS SULFATE (325 MG) 325 MG/TAB TABLET PO SCH (17:24)
[2023-06-19] MEDS: APIXABAN 5 MG TABLET PO SCH (17:25)
[2023-06-19] MEDS: ATORVASTATIN 40 MG TABLET PO SCH (21:02)
[2023-06-20] MEDS: TAMSULOSIN 0.4 MG CAP.SR.24H PO SCH ×2 (05:15→17:50)
[2023-06-20 07:42] VITALS: O2SAT 96
[2023-06-20] MEDS: BUDESONIDE RESPULE INH 0.5 MG/2 ML AMPUL.NEB IH SCH ×2 (07:42→20:00)
[2023-06-20 07:54] VITALS: O2SAT 98
[2023-06-20 08:00] VITALS: BP 137/83; TEMP 98.2; O2SAT 96
[2023-06-20] MEDS: ENSURE ENLIVE CHOC 237 ML CAN PO SCH ×2 (08:27→17:49)
[2023-06-20] MEDS: DILTIAZEM HCL CD 120 MG PO SCH (08:41)
[2023-06-20] MEDS: MELOXICAM 7.5 MG TABLET PO SCH (08:41)
[2023-06-20] MEDS: GABAPENTIN 300 MG CAPSULE PO SCH ×4 (08:42→21:42)
[2023-06-20] MEDS: METOPROLOL SUCCINATE 25 MG TAB.SR.24H PO SCH ×2 (08:43→09:00)
[2023-06-20] MEDS: FUROSEMIDE 40 MG TABLET PO SCH ×2 (08:47→09:00)
[2023-06-20] MEDS: FERROUS SULFATE (325 MG) 325 MG/TAB TABLET PO SCH ×2 (08:47→16:22)
[2023-06-20] MEDS: DOCUSATE SODIUM 100 MG CAPSULE PO SCH (08:47)
[2023-06-20] MEDS: ASCORBIC ACID 500 MG TABLET PO SCH (08:47)
[2023-06-20] MEDS: ACETAMINOPHEN 325 MG TABLET PO SCH (08:47)
[2023-06-20] MEDS: MULTIVIT W/MINERALS 1 TAB TABLET PO SCH (08:48)
[2023-06-20] MEDS: ACIDOPHILUS/BULGARICUS 1 EACH TAB.CHEW PO SCH (08:48)
[2023-06-20] MEDS: PANTOPRAZOLE 40 MG TABLET.DR PO SCH (08:51)
[2023-06-20] MEDS: APIXABAN 5 MG TABLET PO SCH ×2 (08:53→16:28)
[2023-06-20] MEDS: THERAHONEY GEL 1.5 OZ TUBE TP SCH (09:00)
[2023-06-20] MEDS ORDERED: FERROUS SULFATE (325 MG) 325 MG/TAB TABLET PO SCH (09:00)
[2023-06-20 09:04] LABS: HEMOGLOBIN 12.7 g/dL (13.5-17.5)
[2023-06-20] MEDS: HYDROGEL DRESSING 90 GM TUBE TP SCH (09:57)
[2023-06-20] MEDS: Z GUARD REMEDY 4 OZ OINT TP PRN (12:03)
[2023-06-20] MEDS: Z GUARD REMEDY 4 OZ OINT TP SCH (12:05)
[2023-06-20 16:00] VITALS: BP 111/71; TEMP 98.5; O2SAT 97
[2023-06-20] MEDS: PROSOURCE / PROSTAT (PYXIS) 30 ML UDC PO SCH (17:57)
[2023-06-20 20:00] VITALS: BP 82/57; TEMP 97.5; O2SAT 96; O2SAT 97
[2023-06-20 20:10] VITALS: O2SAT 99
[2023-06-20] MEDS: ATORVASTATIN 40 MG TABLET PO SCH (22:00)
[2023-06-21] VITALS (7 sets, daily range): BP systolic 106–115; BP diastolic 71–83; TEMP 97.3–97.7; O2SAT 95–100
[2023-06-21] MEDS: TAMSULOSIN 0.4 MG CAP.SR.24H PO SCH ×2 (06:23→17:10)
[2023-06-21 06:30] LABS: BASOPHILS % (AUTO) 0.6 % (0.0-2.0); EOSINOPHILS # (AUTO) 0.1 K/uL (0.0-0.7); EOSINOPHILS % (AUTO) 2.1 % (0.0-6.0); HEMATOCRIT 37 % (39-51); HEMOGLOBIN 11.8 g/dL (13.5-17.5); LYMPHOCYTES # (AUTO) 0.8 K/uL (0.8-4.8); LYMPHOCYTES % (AUTO) 20.8 % (20.0-44.0); MEAN CORPUSCULAR HEMOGLOBIN 27 PG (26.0-33.0); MEAN CORPUSCULAR HGB CONC 32 g/dl (31.0-36.0); MEAN CORPUSCULAR VOLUME 83 fL (80-96); MONOCYTES # (AUTO) 0.4 K/uL (0.1-1.30); MONOCYTES % (AUTO) 10.7 % (2.0-12.0); NEUTROPHILS # (AUTO) 2.6 K/uL (1.8-8.9); NEUTROPHILS % (AUTO) 65.8 % (43.0-81.0); PLATELET COUNT (AUTO) 169 K/uL (150-450); RED BLOOD CELL COUNT(AUTO) 4.39 MIL/uL (4.5-6.0); RED CELL DISTRIBUTION WIDTH 19.1 % (11.5-15.0); WHITE BLOOD COUNT (AUTO) 3.9 K/uL (4.3-11.0)
[2023-06-21 06:59] LABS: CALCIUM, SERUM 8.5 mg/dL (8.5-10.1); CARBON DIOXIDE 29 mmol/L (21-32); CHLORIDE 104 mmol/L (98-107); CREATININE 0.8 mg/dL (0.6-1.3); GLUCOSE 112 mg/dL (74-106); PHOSPHORUS 3.9 mg/dL (2.5-4.9); POTASSIUM 3.7 mmol/L (3.5-5.1); SODIUM SERUM 141 mmol/L (136-145); UREA NITROGEN, BLOOD 23 mg/dL (7-18)
[2023-06-21] MEDS: BUDESONIDE RESPULE INH 0.5 MG/2 ML AMPUL.NEB IH SCH ×2 (07:52→20:05)
[2023-06-21] MEDS: ENSURE ENLIVE CHOC 237 ML CAN PO SCH ×2 (08:34→17:45)
[2023-06-21] MEDS: MELOXICAM 7.5 MG TABLET PO SCH (08:47)
[2023-06-21] MEDS: ACIDOPHILUS/BULGARICUS 1 EACH TAB.CHEW PO SCH (08:48)
[2023-06-21] MEDS: MULTIVIT W/MINERALS 1 TAB TABLET PO SCH (08:48)
[2023-06-21] MEDS: GABAPENTIN 300 MG CAPSULE PO SCH ×4 (08:48→20:31)
[2023-06-21] MEDS: FERROUS SULFATE (325 MG) 325 MG/TAB TABLET PO SCH ×2 (08:48→16:33)
[2023-06-21] MEDS: DOCUSATE SODIUM 100 MG CAPSULE PO SCH (08:48)
[2023-06-21] MEDS: DILTIAZEM HCL CD 120 MG PO SCH (08:49)
[2023-06-21] MEDS: ASCORBIC ACID 500 MG TABLET PO SCH (08:50)
[2023-06-21] MEDS: ACETAMINOPHEN 325 MG TABLET PO SCH (08:50)
[2023-06-21] MEDS: APIXABAN 5 MG TABLET PO SCH ×2 (08:53→16:32)
[2023-06-21] MEDS: PANTOPRAZOLE 40 MG TABLET.DR PO SCH (08:56)
[2023-06-21] MEDS: FUROSEMIDE 40 MG TABLET PO SCH (09:00)
[2023-06-21] MEDS: METOPROLOL SUCCINATE 25 MG TAB.SR.24H PO SCH (09:00)
[2023-06-21] MEDS: PROSOURCE / PROSTAT (PYXIS) 30 ML UDC PO SCH ×2 (09:37→17:45)
[2023-06-21] MEDS: Z GUARD REMEDY 4 OZ OINT TP SCH (09:38)
[2023-06-21] MEDS: HYDROGEL DRESSING 90 GM TUBE TP SCH (09:41)
[2023-06-21] MEDS: THERAHONEY GEL 1.5 OZ TUBE TP SCH (10:43)
[2023-06-21] MEDS: CEFTRIAXONE 1 G in IV D5W 50 ML IV SCH (12:12)
[2023-06-22] MEDS: TAMSULOSIN 0.4 MG CAP.SR.24H PO SCH (05:42)
[2023-06-22 06:17] LABS: BASOPHILS % (AUTO) 0.5 % (0.0-2.0); EOSINOPHILS # (AUTO) 0.1 K/uL (0.0-0.7); EOSINOPHILS % (AUTO) 2.3 % (0.0-6.0); HEMATOCRIT 36 % (39-51); HEMOGLOBIN 11.8 g/dL (13.5-17.5); LYMPHOCYTES % (AUTO) 20.9 % (20.0-44.0); MEAN CORPUSCULAR HEMOGLOBIN 27 PG (26.0-33.0); MEAN CORPUSCULAR HGB CONC 33 g/dl (31.0-36.0); MEAN CORPUSCULAR VOLUME 82 fL (80-96); MONOCYTES # (AUTO) 0.4 K/uL (0.1-1.30); MONOCYTES % (AUTO) 8.6 % (2.0-12.0); NEUTROPHILS # (AUTO) 3.1 K/uL (1.8-8.9); NEUTROPHILS % (AUTO) 67.7 % (43.0-81.0); PLATELET COUNT (AUTO) 180 K/uL (150-450); RED BLOOD CELL COUNT(AUTO) 4.39 MIL/uL (4.5-6.0); WHITE BLOOD COUNT (AUTO) 4.6 K/uL (4.3-11.0)
[2023-06-22 06:33] LABS: CALCIUM, SERUM 8.6 mg/dL (8.5-10.1); CARBON DIOXIDE 31 mmol/L (21-32); CHLORIDE 104 mmol/L (98-107); CREATININE 0.7 mg/dL (0.6-1.3); GLUCOSE 99 mg/dL (74-106); MAGNESIUM 1.9 mg/dL (1.8-2.4); PHOSPHORUS 3.7 mg/dL (2.5-4.9); POTASSIUM 3.8 mmol/L (3.5-5.1); SODIUM SERUM 142 mmol/L (136-145); UREA NITROGEN, BLOOD 24 mg/dL (7-18)
[2023-06-22 07:00] VITALS: BP 123/79; TEMP 98.1; O2SAT 97
[2023-06-22] MEDS: BUDESONIDE RESPULE INH 0.5 MG/2 ML AMPUL.NEB IH SCH (07:30)
[2023-06-22] MEDS: PANTOPRAZOLE 40 MG TABLET.DR PO SCH (07:51)
[2023-06-22] MEDS: ENSURE ENLIVE CHOC 237 ML CAN PO SCH (08:21)
[2023-06-22] MEDS: METOPROLOL SUCCINATE 25 MG TAB.SR.24H PO SCH (08:40)
[2023-06-22] MEDS: ASCORBIC ACID 500 MG TABLET PO SCH (08:41)
[2023-06-22] MEDS: MULTIVIT W/MINERALS 1 TAB TABLET PO SCH (08:41)
[2023-06-22 08:42] VITALS: BP 123/79
[2023-06-22] MEDS: ACIDOPHILUS/BULGARICUS 1 EACH TAB.CHEW PO SCH (08:42)
[2023-06-22] MEDS: DILTIAZEM HCL CD 120 MG PO SCH (08:42)
[2023-06-22] MEDS: GABAPENTIN 300 MG CAPSULE PO SCH ×2 (08:42→12:14)
[2023-06-22] MEDS: FERROUS SULFATE (325 MG) 325 MG/TAB TABLET PO SCH (08:43)
[2023-06-22] MEDS: MELOXICAM 7.5 MG TABLET PO SCH (08:43)
[2023-06-22] MEDS: FUROSEMIDE 40 MG TABLET PO SCH (08:43)
[2023-06-22] MEDS: DOCUSATE SODIUM 100 MG CAPSULE PO SCH (08:43)
[2023-06-22] MEDS: ACETAMINOPHEN 325 MG TABLET PO SCH (08:43)
[2023-06-22] MEDS: APIXABAN 5 MG TABLET PO SCH (08:45)
[2023-06-22] MEDS: THERAHONEY GEL 1.5 OZ TUBE TP SCH (08:46)
[2023-06-22] MEDS: Z GUARD REMEDY 4 OZ OINT TP PRN (08:47)
[2023-06-22] MEDS: HYDROGEL DRESSING 90 GM TUBE TP SCH (08:47)
[2023-06-22] MEDS: Z GUARD REMEDY 4 OZ OINT TP SCH (08:49)
[2023-06-22] MEDS: PROSOURCE / PROSTAT (PYXIS) 30 ML UDC PO SCH (08:55)
[2023-06-22] MEDS: CEFTRIAXONE 1 G in IV D5W 50 ML IV SCH (10:40)
[2023-06-22] MEDS ORDERED: SULF1TAB48 PO (12:48)
[2023-06-22] MEDS ORDERED: SULFAMETH/TRIMETH 800/160 MG 1 UDTAB TABLET PO SCH (13:00)
== END 2023-06-22 16:00 | DRG 693 ==
LOC: ER 22:40 → MED 06-19 02:26
PROVIDERS: ADMIT Internal Medicine; ATTEND Nurse Practitioner Family
DX: N20.2 Calculus of kidney with calculus of ureter (principal); L89.224 Pressure ulcer of left hip, stage 4; N39.0 Urinary tract infection, site not specified; D62 Acute posthemorrhagic anemia; I50.42 Chronic combined systolic (congestive) and diastolic (congestive) heart failure; F03.94 Unspecified dementia, unspecified severity, with anxiety; I11.0 Hypertensive heart disease with heart failure; E78.5 Hyperlipidemia, unspecified; I48.91 Unspecified atrial fibrillation; Z88.8 Allergy status to other drugs, medicaments and biological substances; Z79.899 Other long term (current) drug therapy; Z79.01 Long term (current) use of anticoagulants; L89.156 Pressure-induced deep tissue damage of sacral region; R62.7 Adult failure to thrive; F41.9 Anxiety disorder, unspecified; R73.03 Prediabetes; G62.9 Polyneuropathy, unspecified; N40.0 Benign prostatic hyperplasia without lower urinary tract symptoms; B95.62 Methicillin resistant Staphylococcus aureus infection as the cause of diseases classified elsewhere; D50.9 Iron deficiency anemia, unspecified; R31.0 Gross hematuria
CPT/HCPCS: 36415; 80048-TC; 80053-TC; 80061-TC; 80076-TC; 81001; 83540-TC; 83690-TC; 83735-TC; 84100-TC; 84443-TC; 85025-TC; 85027-TC; 85730-TC; 87081-TC; 87086-TC; 92526; 92611-TC; 94799-TC; A4223; A6248; A6253; A6403; G0378; J0696; J7050; J7060